=== PATIENT | female | born 1945 | race Caucasian/White ===

== ENCOUNTER 2022-02-14 09:03 | Outpatient (RCR) | payer MEDICARE, BC | END 2022-02-21 | disposition home or self-care (01) | LOC: PT | DX: M25.561 Pain in right knee (principal); M25.562 Pain in left knee ==

== ENCOUNTER 2022-10-23 10:00 | Outpatient (RCR) | payer MEDICARE, BC | END 2022-11-22 | disposition home or self-care (01) | LOC: PT | DX: M25.561 Pain in right knee (principal); M25.562 Pain in left knee ==

== ENCOUNTER 2022-12-18 14:34 | Outpatient (RCR) | payer MEDICARE, BC | END 2022-12-21 17:19 | LOC: OPPGERO 14:34 | DX: F41.9 Anxiety disorder, unspecified (principal); R45.81 Low self-esteem ==

== ENCOUNTER 2024-01-21 10:49 | Emergency (ER) | payer MEDICARE, BC ==
[~2024-01-21] VITALS: Ht 160 cm; Wt 54.5 kg
[2024-01-21 11:29] LABS: BASO # 0.01 K/mm3 (0.02-0.10); EOS # 0.17 K/mm3 (0.04-0.40); EOS % 2.1 % (1.0-5.0); HEMATOCRIT 45.8 % (37.0-47.0); HEMOGLOBIN 14.8 g/dL (12.5-16.0); LYMPH# 1.85 K/mm3 (1.50-4.00); MEAN CELL VOLUME 91 fl (78-100); MEAN CORPUSCULAR HEMOGLOBIN 29 pg (27-31); MEAN CORPUSCULAR HGB CONC 32 g/dL (33-37); MEAN PLATELET VOLUME 10.4 fl (7.4-10.4); MONO # 0.49 K/mm3 (0.20-0.80); NEU # 5.69 K/mm3 (1.40-6.50); PLATELET COUNT 263 K/mm3 (130-400); RED BLOOD COUNT 5.05 M/mm3 (4.10-5.30); RED CELL DISTRIBUTION WIDTH 12.1 % (11.5-14.5); WHITE BLOOD COUNT 8.3 K/mm3 (4.8-10.8)
[2024-01-21] MEDS ORDERED: fentaNYL 100 MCG/2 ML VIAL IV ONE (11:30)
[2024-01-21 11:40] LABS: ALBUMIN 3.9 g/dL (3.4-4.8)
[2024-01-21 11:41] LABS: CALCIUM 9.3 mg/dL (8.3-10.5)
[2024-01-21 11:43] LABS: TOTAL PROTEIN 6.5 g/dL (6.2-8.1)
[2024-01-21 11:44] LABS: TOTAL BILIRUBIN 0.7 mg/dL (0.2-1.2)
[2024-01-21] MEDS ORDERED: PAROXETINE HYDR40 MG PO (12:12)
[2024-01-21] MEDS ORDERED: ACETAMINOPHEN-H1 TA2 PO (12:12)
[2024-01-21] MEDS ORDERED: Morphine 4 MG/ML VIAL IV ONE ×2 (12:15→13:30)
[2024-01-21] MEDS ORDERED: VRAYLAR1.5 MG PO (12:21)
[2024-01-21] MEDS ORDERED: BISACODYL10 M1 RC (12:23)
[2024-01-21] MEDS ORDERED: FEVERALL INFANT80 MG RC (12:23)
[2024-01-21] MEDS ORDERED: GLIMEPIRIDE2 M1 PO (12:25)
[2024-01-21] MEDS ORDERED: [UNRECOGNIZED DRUG - OTHER] PO (12:29)
[2024-01-21] MEDS ORDERED: ED-SPAZ0.125 MG PO (12:30)
[2024-01-21] MEDS ORDERED: IBU800 M2 PO (12:31)
[2024-01-21] MEDS ORDERED: LEVO-T50 MCG PO (12:32)
[2024-01-21] MEDS ORDERED: LORazepam 2 MG/ML VIAL IV ONE ×2 (12:45→13:00)
[2024-01-21] MEDS ORDERED: LORAZEPAM0.5 M1 PO (12:49)
[2024-01-21] MEDS ORDERED: ATIVAN0.5 MG PO (12:50)
[2024-01-21] MEDS ORDERED: LORAZEPAM INT2 MG/ML PO (12:52)
[2024-01-21] MEDS ORDERED: ZOFRAN ODT4 MG PO (12:53)
[2024-01-21] MEDS ORDERED: MORPHINE S100 MG/5 M PO (12:53)
[2024-01-21] MEDS ORDERED: PANTOPRAZOLE SO40 MG PO (12:54)
[2024-01-21] MEDS ORDERED: LIDOCAINE PAIN1 EACH TP (13:24)
[2024-01-21] MEDS ORDERED: Lidocaine 4% Topical Patch TP ONE (13:30)
[2024-01-21 14:11] VITALS: BP 162/82
== END 2024-01-21 14:13 | disposition home or self-care (01) ==
LOC: ED 10:49
PROVIDERS: Physician Assistant
DX: S32.020A Wedge compression fracture of second lumbar vertebra, initial encounter for closed fracture (principal); M25.551 Pain in right hip; I10 Essential (primary) hypertension; W01.0XXA Fall on same level from slipping, tripping and stumbling without subsequent striking against object, initial encounter; Y92.129 Unspecified place in nursing home as the place of occurrence of the external cause
CPT/HCPCS: J2060; J2270; J3010